=== PATIENT | female | born 1975 ===

== ENCOUNTER 2020-10-22 21:39 | Emergency (ER) | payer SELFPAY ==
[2020-10-22 21:46] VITALS: BP 152/86; PULSE 86; RESP 20; TEMP 98.3
--- NOTE | 2020-10-22 21:57 | ED ---
General Adult HPI - General Chief complaint: Recheck/Abnormal Lab/Rx Stated complaint: Covid test Time Seen by Provider: 10/22/20 21:47 Source: patient Mode of arrival: ambulatory Limitations: no limitations - History of Present Illness Initial comments: Dictation was produced using [employer] dictation software. please excuse any grammatical, word or spelling errors. Chief Complaint: 45-year-old female requesting covid testing History of Present Illness: 45-year-old female presents to the emergency department for Covid testing. They live in [place] and traveled to [place] for family reasons. Patient needs a Covid tests to return back to [place]. She has no symptoms The ROS documented in this emergency department record has been reviewed and confirmed by me. Those systems with pertinent positive or negative responses have been documented in the HPI. All other systems are other negative and/or noncontributory. PHYSICAL EXAM: General Impression: Alert and oriented x3, not in acute distress HEENT: Normocephalic atraumatic, extra-ocular movements intact, pupils equal and reactive to light bilaterally, mucous membranes moist. Cardiovascular: Heart regular rate and rhythm Chest: Able to complete full sentences, no retractions, no tachypnea Motor: no focal deficits noted Neurological: CN II-XII grossly intact, no focal motor or sensory deficits noted Skin: Intact with no visualized rashes Psych: Normal affect and mood ED course: 45-year-old male presents with request for Covid testing to return to [place]. Vital signs upon arrival are within acceptable limits. Patient is asymptomatic. covid not detected. Patient discharged - Related Data Home Medications Medication Instructions Recorded Confirmed No Known Home Medications 10/22/20 10/22/20 Allergies Allergy/AdvReac Type Severity Reaction Status Date / Time No Known Allergies Allergy Verified 10/22/20 21:46 Review of Systems ROS Statement: Those systems with pertinent positive or pertinent negative responses have been documented in the HPI. ROS Other: All systems not noted in ROS Statement are negative. Past Medical History Past Medical History: No Reported History History of Any Multi-Drug Resistant Organisms: None Reported Past Surgical History: No Surgical Hx Reported Past Psychological History: No Psychological Hx Reported Smoking Status: Never smoker Past Alcohol Use History: None Reported Past Drug Use History: None Reported General Exam Limitations: no limitations Course Vital Signs 10/22/20 21:43 Temperature 98.3 F Pulse Rate 86 Respiratory 20 Rate Blood Pressure 152/86 O2 Sat by Pulse 100 Oximetry Medical Decision Making - Lab Data Lab Results 10/22/20 Range/Units 21:51 Coronavirus (PCR) Not Detected (Not Detectd) Disposition Clinical Impression: Lab test negative for COVID-19 virus Disposition: HOME SELF-CARE Condition: Good Is patient prescribed a controlled substance at d/c from ED?: No Referrals: None,Stated [Primary Care Provider] - 1-2 days
== END 2020-10-22 23:00 | disposition home or self-care (01) ==
LOC: EC 21:39
DX: Z20.822 Contact with and (suspected) exposure to COVID-19 (principal)
CPT/HCPCS: 87635; 99282